=== PATIENT | male | born 1930 | race Caucasian/White ===

== ENCOUNTER 2017-06-28 17:31 | Observation (INO) | payer MEDICARE, OTHER ==
[~2017-06-28] VITALS: Ht 175.3 cm; Wt 87.9 kg
[2017-06-28 18:04] VITALS: BP 176/78; PULSE 106; TEMP 97.6
[2017-06-28] MEDS ORDERED: ZYRTEC SYRUP1 MG/ML PO (18:32)
[2017-06-28] MEDS ORDERED: ZOCOR5 MG PO (18:32)
[2017-06-28] MEDS ORDERED: CYMBALTA 30MG30 MG PO (18:33)
[2017-06-28] MEDS ORDERED: NEURONTIN100 MG/CAP PO (18:33)
[2017-06-28] MEDS ORDERED: ACIPHEX20 MG PO (18:34)
[2017-06-28] MEDS ORDERED: DICLOFENAC SOD2.5 ML TOP (18:34)
[2017-06-28] MEDS ORDERED: FLOMAX 0.40.4 MG/CAP PO (18:35)
[2017-06-28] MEDS ORDERED: CALCIUM CARB W/1 TA1 PO (18:35)
[2017-06-28] MEDS ORDERED: SINGULAIR 110 MG/TAB PO (18:36)
[2017-06-28] MEDS ORDERED: FOSAMAX 10M10 MG/TAB PO (18:36)
[2017-06-28] MEDS ORDERED: FLONASEALLERGY NS (18:37)
[2017-06-28] MEDS ORDERED: LEADER CLEARLAX PO (18:37)
[2017-06-28] MEDS ORDERED: SIMETHICONE80 MG PO (18:38)
[2017-06-28 19:16] VITALS: BP 138/71; PULSE 52
[2017-06-28 20:00] VITALS: BP 145/73; PULSE 57; TEMP 98.2
[2017-06-29] VITALS: BP 142/70; PULSE 123; TEMP 97.9
[2017-06-29 04:00] VITALS: BP 101/58; PULSE 81; TEMP 98
[2017-06-29 06:53] LABS: BASO # 0.1 (0.0-0.2); BASO % 1.9 % (0.0-2.0); EOS # 0.5 (0.0-0.7); EOS % 8.6 % (0-4.0); GRAN # 2.4 (1.4-6.5); HEMATOCRIT 40.2 % (42.0-52.0); HEMOGLOBIN 12.9 g/dl (13.5-18.0); LYMPH # 2.2 (1.2-3.4); LYMPH % 36.6 % (20.0-51.0); MEAN CELL VOLUME 94 fl (80.0-100.0); MEAN CORPUSCULAR HEMOGLOBIN 30 pg (27.0-31.0); MEAN CORPUSCULAR HGB CONC 32 g/dl (33.0-37.0); MONO # 0.7 (0.1-0.6); MONO % 11.6 % (1.7-9.3); PLATELET COUNT 188 K/mm3 (130-400); REDCELL DISTRIBUTION WIDTH-CV 13.8 % (11.5-14.5)
[2017-06-29 07:40] LABS: CALCIUM 9.1 mg/dL (8.4-10.2); CHOLESTEROL RISK RATIO 3.8; MAGNESIUM 1.9 mg/dL (1.6-2.3); PHOSPHOROUS 4.3 mg/dL (2.5-4.5); POTASSIUM 4.3 mmol/L (3.4-5.0)
[2017-06-29 09:14] VITALS: BP 132/62; PULSE 64; TEMP 97.7
[2017-06-29 16:53] LABS: FOLATE (FOLIC ACID) 9.1 ng/mL (7.0-31.4)
[2017-06-29 17:20] VITALS: BP 147/77; PULSE 57; TEMP 98.8
[2017-06-29 21:10] VITALS: BP 174/73; PULSE 65; TEMP 97.6
[2017-06-29 21:59] VITALS: BP 146/66
[2017-06-30] VITALS (9 sets, daily range): BP systolic 124–187; BP diastolic 70–97; PULSE 56–87; TEMP 97.4–98.4
[2017-06-30] MEDS ORDERED: NORVASC 5MG5 MG/TAB PO (15:09)
== END 2017-06-30 16:08 | disposition home or self-care (01) ==
LOC: SURG 17:31
PROVIDERS: Internal Medicine
DX: R07.89 Other chest pain (principal); I10 Essential (primary) hypertension; M43.8X4 Other specified deforming dorsopathies, thoracic region; Z85.46 Personal history of malignant neoplasm of prostate; Z85.118 Personal history of other malignant neoplasm of bronchus and lung; E78.5 Hyperlipidemia, unspecified; K21.9 Gastro-esophageal reflux disease without esophagitis; Z86.718 Personal history of other venous thrombosis and embolism; Z79.01 Long term (current) use of anticoagulants; Z87.891 Personal history of nicotine dependence; Z88.6 Allergy status to analgesic agent; Z88.7 Allergy status to serum and vaccine; Z88.8 Allergy status to other drugs, medicaments and biological substances
CPT/HCPCS: 99222-AI; 99232-AI; A9502; G0378; J1644; J2270; J2785

== ENCOUNTER → 2017-08-17 | Outpatient (CLI) | payer MEDICARE, OTHER ==
[~2017-08-17] MED LIST: ACIPHEX20 MG PO; CALCIUM CARB W/1 TA1 PO; CYMBALTA 30MG30 MG PO; DICLOFENAC SOD2.5 ML TOP; FLOMAX 0.40.4 MG/CAP PO; FLONASEALLERGY NS; FOSAMAX 10M10 MG/TAB PO; LEADER CLEARLAX PO; NEURONTIN100 MG/CAP PO; NORVASC 5MG5 MG/TAB PO; SIMETHICONE80 MG PO; SINGULAIR 110 MG/TAB PO; ZOCOR5 MG PO; ZYRTEC SYRUP1 MG/ML PO
== END ==
LOC: COL.RAD 21:22
DX: M43.8X6 Other specified deforming dorsopathies, lumbar region (principal); M51.36 Other intervertebral disc degeneration, lumbar region; Z85.118 Personal history of other malignant neoplasm of bronchus and lung; Z85.46 Personal history of malignant neoplasm of prostate; R20.2 Paresthesia of skin

== ENCOUNTER 2018-09-13 08:02 | Day surgery (SDC) | payer MEDICARE, OTHER ==
[~2018-09-13] VITALS: Ht 175.3 cm; Wt 90.5 kg
[2018-09-13 08:25] VITALS: BP 151/89; PULSE 70; TEMP 96.9
[2018-09-13] MEDS ORDERED: FOSAMAX 70MG TA70 MG PO (08:34)
[2018-09-13 10:05] VITALS: BP 127/81; PULSE 67; TEMP 97.1
[2018-09-13 10:20] VITALS: BP 144/83; PULSE 65
--- NOTE | 2018-09-13 10:20 | NUR ---
Pt continues to rest. Tolerating fluids without difficulties. Will continue to monitor.
[2018-09-13 10:35] VITALS: BP 154/89; PULSE 65
--- NOTE | 2018-09-13 10:35 | NUR ---
More warm blankets given. Pt denies needs. Call light within reach.
--- NOTE | 2018-09-13 10:35 | NUR ---
Pt to GI bay 2 via cart from [employer]. Pt drowsy, but awake and answers questions appropriately. Denies pain or nausea. Pt ambulates to recliner with stand by assistance. Warm blankets provided. [place] juice given per pt request. Daughter in room. Will continue to monitor. Call light within reach.
[2018-09-13 10:50] VITALS: BP 158/83; PULSE 55
--- NOTE | 2018-09-13 10:50 | NUR ---
Discharge instructions reviewed. Pt voices understanding. IV site discontinued with all parts intact. Pt up to dress. Call light within reach.
--- NOTE | 2018-09-13 11:20 | NUR ---
Pt escorted to private car via wheel chair. Pt accompanied home by his daughter.
== END 2018-09-13 11:20 | disposition home or self-care (01) ==
LOC: SDCO 08:02
DX: K52.831 Collagenous colitis (principal); K57.30 Diverticulosis of large intestine without perforation or abscess without bleeding; K63.89 Other specified diseases of intestine; K64.0 First degree hemorrhoids; K59.00 Constipation, unspecified; I48.91 Unspecified atrial fibrillation; Z85.118 Personal history of other malignant neoplasm of bronchus and lung; Z85.46 Personal history of malignant neoplasm of prostate; E78.5 Hyperlipidemia, unspecified; I10 Essential (primary) hypertension; K21.9 Gastro-esophageal reflux disease without esophagitis; Z88.2 Allergy status to sulfonamides; Z88.5 Allergy status to narcotic agent; Z88.6 Allergy status to analgesic agent; Z88.8 Allergy status to other drugs, medicaments and biological substances; Z86.718 Personal history of other venous thrombosis and embolism
CPT/HCPCS: J2704; J7030